=== PATIENT | female | born 1950 | race Caucasian/White ===

== ENCOUNTER 2016-10-17 22:56 | Emergency (ER) | payer OTHER ==
[~2016-10-17] VITALS: Ht 167.6 cm; Wt 70.0 kg
[~2016-10-17 22:56] MED LIST: ALBU8I INH; ALLE12TA PO; ATEN1TAB73 PO; ATOR40TA49 PO; CLOP75 PO; DRIS8000 PO; ECOT81TA2 PO; ENBR50IN3 SC; FLOV44AE IN; NITR.4 SL; OXYC1SOL5 PO; WALKER ROLLING
[2016-10-17 23:02] VITALS: BP 140/69; PULSE 72; RESP 18; TEMP 97.9; O2SAT 97
[2016-10-17] MEDS ORDERED: SODIUM CHLOR 0.9% 1000 ML INJ 1,000 ML IV SCH (23:07)
[2016-10-17 23:13] VITALS: O2SAT 98
[2016-10-17] MEDS ORDERED: SODIUM CHLORIDE 0.9% FLUSH 10 ML FLUSH IVF PRN (23:15)
[2016-10-17] MEDS ORDERED: THIAMINE INJ 100 MG in SODIUM CHLORIDE 0.9% INJ 100 ML IV ONE (23:15)
--- NOTE | 2016-10-18 00:10 | RADRPT ---
EXAM DATE/TIME: 10/17/2016 23:48 [facility] COMPARISON: No previous studies available for comparison. INDICATIONS : Possible fall trauma. MEDICAL HISTORY : None. SURGICAL HISTORY : None. ENCOUNTER: Initial ACUITY: 1 day PAIN SCORE: 0/10 LOCATION: Bilateral chest FINDINGS: A single view of the chest demonstrates the lungs to be symmetrically aerated without evidence of mas s, infiltrate or effusion. The cardiomediastinal contours are unremarkable. Osseous structures are intact. CONCLUSION: No acute disease. Jalen Cheatham Jr., MD on October 18, 2016 at 0:07 Board Certified Radiologist. This report was verified electronically.
--- NOTE | 2016-10-18 00:10 | RADRPT ---
EXAM DATE/TIME: 10/17/2016 23:51 [facility] COMPARISON: No previous studies available for comparison. INDICATIONS : Back pain from a possible fall. MEDICAL HISTORY : None. SURGICAL HISTORY : None. ENCOUNTER: Initial ACUITY: 1 day PAIN SCORE: 5/10 LOCATION: Bilateral lower back FINDINGS: Two view examination was performed. There are five non-rib bearing vertebral bodies. The vertebral bodies are in normal alignment without evidence of subluxation or scoliosis. The disc spaces are kierra ntained. The pedicles are intact. Bony mineralization is reduced. No fracture is identified. Athero sclerotic changes involving the abdominal aorta. CONCLUSION: 1. No acute abnormality. 2. Osteopenia. Jalen Cheatham Jr., MD on October 18, 2016 at 0:08 Board Certified Radiologist. This report was verified electronically.
--- NOTE | 2016-10-18 00:20 | RADRPT ---
EXAM DATE/TIME: 10/17/2016 23:59 [facility] COMPARISON: No previous studies available for comparison. INDICATIONS : Fall. Complains of head pain. RADIATION DOSE: 36.27 CTDIvol (mGy) MEDICAL HISTORY : Cardiovascular disease. Hypertension. Deep venous thrombosis.Skin cancer. SURGICAL HISTORY : Hysterectomy. section. ENCOUNTER: Initial ACUITY: 1 day PAIN SCALE: 6/10 LOCATION: cranial TECHNIQUE: Multiple contiguous axial images were obtained of the head. Using automated exposure control and adj ustment of the mA and/or kV according to patient size, radiation dose was kept as low as reasonably a chievable to obtain optimal diagnostic quality images. FINDINGS: CEREBRUM: The ventricles are normal for age. No evidence of midline shift, mass lesion, hemorrhage or acute in farction. No extra-axial fluid collections are seen. POSTERIOR FOSSA: The cerebellum and brainstem are intact. The 4th ventricle is midline. The cerebellopontine angle i s unremarkable. EXTRACRANIAL: The visualized portion of the orbits is intact. A right high posterior parietal soft tissue hematoma. SKULL: The calvaria is intact. No evidence of skull fracture. CONCLUSION: 1. Right-sided soft tissue hematoma. Otherwise, unremarkable exam. Jalen Cheatham Jr., MD on October 18, 2016 at 0:17 Board Certified Radiologist. This report was verified electronically.
--- NOTE | 2016-10-18 00:24 | RADRPT ---
EXAM DATE/TIME: 10/17/2016 23:59 [facility] COMPARISON: No previous studies available for comparison. INDICATIONS : Fall, complains of neck pain. RADIATION DOSE: 21.07 CTDIvol (mGy) MEDICAL HISTORY : Cardiovascular disease. Hypertension. Deep venous thrombosis.Skin cancer. SURGICAL HISTORY : Hysterectomy. section. ENCOUNTER: Initial ACUITY: 1 day PAIN SCALE: 6/10 LOCATION: neck TECHNIQUE: Volumetric scanning of the cervical spine was performed. Multiplanar reconstructions in the sagittal, coronal and oblique axial planes were performed. Using automated exposure control and adjustment o f the mA and/or kV according to patient size, radiation dose was kept as low as reasonably achievable to obtain optimal diagnostic quality images. FINDINGS: VERTEBRAE: Normal vertebral body height. ALIGNMENT: No evidence of subluxation. C2-C3: There is a mild broad-based bulge. No central canal stenosis. Neural foramina are patent. C3-C4: There is a mild broad-based bulge. No central canal stenosis. Neural foramina are patent. C4-C5: There is a central disc bulge that flattens the right ventral portion of the cord. Narrowing of the r ight lateral recess. Left lateral recess and both neural foramen are patent. C5-C6: There is a broad-based disc bulge that abuts the ventral portion of the cord without appreciable flat tening. Narrowing of both lateral recesses. Neural foramina are patent bilaterally. C6-C7: The bony spinal canal is normal in size. No evidence of disc bulge or herniation. The neural forami na are bilaterally patent. C7-T1: The bony spinal canal is normal in size. No evidence of disc bulge or herniation. The neural forami na are bilaterally patent. A 1.7 cm nodule is seen involving the right lobe of the thyroid. CONCLUSION: 1. No fracture. 2. Multilevel degenerative changes as detailed at each level in the above discussion. 3. 1.7 cm right thyroid nodule. Jalen Cheatham Jr., MD on October 18, 2016 at 0:18 Board Certified Radiologist. This report was verified electronically.
[2016-10-18 00:40] LABS: AUTOMATED NEUTROPHIL # 5.1 TH/MM3 (1.8-7.7); BASOPHIL # 0.1 TH/MM3 (0-0.2); BASOPHIL % 0.8 % (0.0-2.0); EOSINOPHIL # 0.2 TH/MM3 (0-0.4); HEMATOCRIT 39.2 % (35.0-46.0); HEMO FLAGS DIFF FINAL; LYMPH % 33.1 % (9.0-44.0); MEAN CELL VOLUME 88.9 FL (80.0-100.0); MEAN CORPUSCULAR HEMOGLOBIN 29.4 PG (27.0-34.0); MEAN CORPUSCULAR HGB CONC 33.1 % (32.0-36.0); MONO % 7.6 % (0.0-8.0); NEUT % 56.5 % (16.0-70.0); PLATELET COUNT 239 TH/MM3 (150-450); RED BLOOD COUNT 4.41 MIL/MM3 (4.00-5.30); RED CELL DISTRIBUTION WIDTH 14.3 % (11.6-17.2); WHITE BLOOD COUNT 9.1 TH/MM3 (4.0-11.0)
[2016-10-18 00:44] LABS: ALT (GPT) 31 U/L (10-53); ANION GAP 10 MEQ/L (5-15); AST (GOT) 23 U/L (15-37); BICARBONATE 24.6 MEQ/L (21.0-32.0); BLOOD UREA NITROGEN 9 MG/DL (7-18); CHLORIDE 100 MEQ/L (98-107); GLOMERULAR FILTRATION RATE 64 ML/MIN (>89); POTASSIUM 3.2 MEQ/L (3.5-5.1); SODIUM (NA) 135 MEQ/L (136-145)
--- NOTE | 2016-10-18 00:45 | PD ---
HPI Chief Complaint: Fall Time Seen by Provider: 23:07 Travel History International Travel<30 days: No Contact w/Intl Traveler<30days: No Traveled to known affect area: No History of Present Illness HPI The patient 66 years old and arrives by EMS. She was drinking alcohol and dancing and had a fall. She struck her occipital head on the ground. She fell from standing. She arrives complaining of headache. She also has chronic low back pain having undergone surgeries previously for it. EMS notes GCS of 15 on scene with no neurologic deficit. Heart rate in the 60s. The blood pressure was 106/92 on scene. PFSH Past Medical History Arthritis: Yes (RA) Anxiety: No Depression: No Cancer: Yes (SKIN CA REMOVED FROM FACE) Cardiovascular Problems: Yes Diminished Hearing: No Deep Vein Thrombosis: Yes Endocrine: No Gastrointestinal Disorders: Yes (HERNIA) Genitourinary: No Hypertension: Yes Musculoskeletal: Yes (Ankylosing Spondylitis, RA) Neurologic: Yes (VERTIGO) Psychiatric: No Reproductive: No Respiratory: Yes (COPD) Past Surgical History Abdominal Surgery: Yes (GASTRIC BY-PASS) Section: Yes Gynecologic Surgery: Yes Hysterectomy: Yes (HTN) Tonsillectomy: Yes Other Surgery: Yes (2 x bilateral breast reduction) Social History Alcohol Use: Yes (on occasion) Tobacco Use: Yes (1/2 ppd) Substance Use: No Allergies-Medications (Allergen,Severity, Reaction): Coded Allergies: Lortab (Unverified Allergy, Mild, GI UPSET, 10/17/16) PT STATES CURRENTLY TAKING THIS MEDICATION Sulfa (Verified Allergy, Unknown, 10/17/16) Uncoded Allergies: "ALL PM RX" (Allergy, Mild, AGITATION, 12/19/08) Reported Meds & Prescriptions Reported Meds & Active Scripts Active Review of Systems Except as stated in HPI: all other systems reviewed are Neg General / Constitutional: No: Fever Musculoskeletal: Positive: Pain (chronic pain) Physical Exam Narrative GENERAL: 66-year-old female mild distress SKIN: Warm dry intact HEAD: Atraumatic. Normocephalic. EYES: Pupils equal and round. No scleral icterus. No injection or drainage. ENT: No nasal bleeding or discharge. Mucous membranes pink and moist. NECK: Trachea midline. No JVD. CARDIOVASCULAR: Regular rate and rhythm. RESPIRATORY: No accessory muscle use. Clear to auscultation. Breath sounds equal bilaterally. GASTROINTESTINAL: Abdomen soft, non-tender, nondistended. Hepatic and splenic margins not palpable. MUSCULOSKELETAL: Extremities without clubbing, cyanosis, or edema. No obvious deformities. NEUROLOGICAL: Awake and alert. No obvious cranial nerve deficits. Motor grossly within normal limits. Five out of 5 muscle strength in the arms and legs. Normal speech. PSYCHIATRIC: Appropriate mood and affect; insight and judgment normal. Data Data Last Documented VS Vital Signs Date Time Temp Pulse Resp B/P Pulse Ox O2 Delivery O2 Flow Rate FiO2 10/17/16 23:13 98 Room Air 10/17/16 23:02 97.9 72 18 140/69 Orders Electrocardiogram (10/17/16 23:07) Complete Blood Count With Diff (10/17/16 23:07) Comprehensive Metabolic Panel (10/17/16 23:07) Chest, Single Ap (10/17/16 23:07) Ct Brain W/O Iv Contrast(Rout) (10/17/16 23:07) Ecg Monitoring (10/17/16 23:07) Iv Access Insert/Monitor (10/17/16 23:07) Oximetry (10/17/16 23:07) Sodium Chloride 0.9% Flush (Ns Flush) (10/17/16 23:15) Sodium Chlor 0.9% 1000 Ml Inj (Ns 1000 M (10/17/16 23:07) Thiamine Inj (Thiamine Inj) (10/17/16 23:15) Drug Screen, Random Urine (10/17/16 23:07) Alcohol (Ethanol) (10/17/16 23:07) Tylenol (Acetaminophen) (10/17/16 23:07) Ct Cerv Spine W/O Contrast (10/17/16 ) Spine, Lumbar - Ltd (Ap & Lat) (10/17/16 ) Potassium Chloride (Kcl) (10/18/16 02:39) Ibuprofen (Motrin) (10/18/16 02:40) Potassium Chloride (Kcl) (10/18/16 02:40) Ibuprofen (Motrin) (10/18/16 02:40) Labs Laboratory Tests Test 10/17/16 23:33 White Blood Count 9.1 TH/MM3 Red Blood Count 4.41 MIL/MM3 Hemoglobin 13.0 GM/DL Hematocrit 39.2 % Mean Corpuscular Volume 88.9 FL Mean Corpuscular Hemoglobin 29.4 PG Mean Corpuscular Hemoglobin 33.1 % Concent Red Cell Distribution Width 14.3 % Platelet Count 239 TH/MM3 Mean Platelet Volume 10.7 FL Neutrophils (%) (Auto) 56.5 % Lymphocytes (%) (Auto) 33.1 % Monocytes (%) (Auto) 7.6 % Eosinophils (%) (Auto) 2.0 % Basophils (%) (Auto) 0.8 % Neutrophils # (Auto) 5.1 TH/MM3 Lymphocytes # (Auto) 3.0 TH/MM3 Monocytes # (Auto) 0.7 TH/MM3 Eosinophils # (Auto) 0.2 TH/MM3 Basophils # (Auto) 0.1 TH/MM3 CBC Comment DIFF FINAL Differential Comment Sodium Level 135 MEQ/L Potassium Level 3.2 MEQ/L Chloride Level 100 MEQ/L Carbon Dioxide Level 24.6 MEQ/L Anion Gap 10 MEQ/L Blood Urea Nitrogen 9 MG/DL Creatinine 0.89 MG/DL Estimat Glomerular Filtration 64 ML/MIN Rate Random Glucose 101 MG/DL Calcium Level 8.5 MG/DL Total Bilirubin 0.2 MG/DL Aspartate Amino Transf 23 U/L (AST/SGOT) Alanine Aminotransferase 31 U/L (ALT/SGPT) Alkaline Phosphatase 79 U/L Total Protein 7.8 GM/DL Albumin 3.5 GM/DL Acetaminophen Level LESS THAN 2.0 MCG/ML Ethyl Alcohol Level 186 MG/DL [facility] Medical Decision Making Medical Screen Exam Complete: Yes Emergency Medical Condition: Yes Medical Record Reviewed: Yes Differential Diagnosis Syncope, alcoholism, and trailers, C-spine injury, lumbar spine injury Narrative Course CBC & BMP Diagram 10/17/16 23:33 LFTs normal EtOH 186 EKG reveals a sinus rhythm with a rate of 65 Last [address] 10/17/162306 Signed Impressions: Service Date/Time: Monday, October 17, 2016 23:59 - CONCLUSION: 1. Right- sided soft tissue hematoma. Otherwise, unremarkable exam. Jalen Cheatham Jr., MD Chest X-Ray 10/17/162306 Signed Impressions: Service Date/Time: Monday, October 17, 2016 23:48 - CONCLUSION: No acute disease. Jalen Cheatham Jr., MD Lumbar Spine X-Ray 10/17/16 0000 Signed Impressions: Service Date/Time: Monday, October 17, 2016 23:51 - CONCLUSION: 1. No acute abnormality. 2. Osteopenia. Jalen Cheatham Jr., MD Cervical Spine CT 10/17/16 0000 Signed Impressions: Service Date/Time: Wednesday, October 17, 2016 23:59 - CONCLUSION: 1. No fracture. 2. Multilevel degenerative changes as detailed at each level in the above discussion. 3. 1.7 cm right thyroid nodule. Jalen Cheatham Jr., MD Workup is essentially unremarkable. The patient complains of a headache primarily on the right side. She received Motrin. Workup reassuring. Potassium replenished. The patient is ready for discharge. She states she recently established a PCP. Of note I called the patient's phone number of record and let her know that there was a 1.7 cm right thyroid nodule. She left a voicemail greeting stating her name is Renee. The call was placed at about 7:30 PM on October 18, 2016. She was told to follow up with her primary care provider and let the provider know about the nodule for further workup. Patient was advised she could call back any time if she was left the [place] phone number. I also advised her I would be working for Wed-Wednesday nights as well as tonight if she wished to speak with me. (Pt was discharged during the down-time and chart has been completed retroactively.) Diagnosis Primary Impression: Fall Qualified Code: W19.XXXA - Fall, initial encounter Referrals: Primary Care Physician Additional Instructions: You have a choice when it comes to health care, and we are glad that you chose [facility]. Hopefully, we have met your expectations on today's visit. You are welcome to return to [facility] at any time, as we are committed to meeting the health care needs of our community. Med/Other Pt SpecificInfo: No Change to Meds Disposition: DISCHARGE HOME Condition: Syed Abbasi MD Oct 18, 2016 00:45
[2016-10-18 00:47] LABS: ALKALINE PHOSPHATASE 79 U/L (45-117); TOTAL BILIRUBIN ADULT 0.2 MG/DL (0.2-1.0)
[2016-10-18 00:54] LABS: ACETAMINOPHEN LESS THAN 2.0 MCG/ML (10.0-30.0)
[2016-10-18] MEDS ORDERED: POTASSIUM CHLORIDE 20 MEQ CONTROLLED RELEASE TAB PO ONE ×2 (02:39→02:40)
[2016-10-18] MEDS ORDERED: IBUPROFEN 400 MG TAB PO ONE (02:40)
[2016-10-18] MEDS ORDERED: IBUPROFEN 400 MG TAB ONE (02:40)
--- NOTE | 2016-10-18 15:05 | EKG ---
Date Performed: 10/17/2016 Time Performed: 23:26:05 PTAGE: 66 years EKG: Sinus rhythm Since previous tracing, no significant change noted NORMAL ECG PREVIOUS TRACING : 06/19/2015 16.29 DOCTOR: David Arellano Interpretating Date/Time 10/18/2016 15:04:30
== END 2016-10-18 03:12 | disposition home or self-care (01) ==
LOC: NEPE 22:56
DX: S00.83XA Contusion of other part of head, initial encounter (principal); M54.5 Low back pain; E04.1 Nontoxic single thyroid nodule; I10 Essential (primary) hypertension; F17.200 Nicotine dependence, unspecified, uncomplicated; W18.39XA Other fall on same level, initial encounter; Y93.41 Activity, dancing; Z87.39 Personal history of other diseases of the musculoskeletal system and connective tissue; Z85.828 Personal history of other malignant neoplasm of skin; Z86.79 Personal history of other diseases of the circulatory system; Z86.718 Personal history of other venous thrombosis and embolism; Z87.19 Personal history of other diseases of the digestive system; Z86.69 Personal history of other diseases of the nervous system and sense organs; Z87.09 Personal history of other diseases of the respiratory system
CPT/HCPCS: 70450; 71010; 72100; 72125; 80053; 80307; 85025; 93005; 96365; 99285; J3411; J7030